=== PATIENT | female | born 1945 | race Hispanic/Latino ===

== ENCOUNTER 2017-08-24 15:20 | Inpatient (IN) | payer OTHER ==
[~2017-08-24] VITALS: Ht 157.5 cm; Wt 66.2 kg
[2017-08-24 15:55] LABS: BASOPHILS % (AUTO) 0.4 % (0.0-5.0); EOSINOPHILS % (AUTO) 0.7 % (0.0-8.0); HEMATOCRIT 35.9 % (36-48); LYMPHOCYTES % (AUTO) 18.1 % (21.0-51.0); MEAN CORPUSCULAR HEMOGLOBIN 30.1 pg (27.0-33.0); MEAN CORPUSCULAR HGB CONC 34.7 g/dL (32.0-36.0); MEAN CORPUSCULAR VOLUME 86.9 fL (79-99); MONOCYTES % (AUTO) 6.3 % (3.0-13.0); NEUTROPHILS % (AUTO) 74.5 % (40.0-77.0); PLATELET COUNT (AUTO) 311 K/uL (130-400); RED BLOOD CELL COUNT(AUTO) 4.13 MIL/uL (4.00-5.50); RED CELL DISTRIBUTION WIDTH 13.6 % (11.0-15.5); WHITE BLOOD COUNT (AUTO) 13.7 K/uL (4.8-10.8)
[2017-08-24 16:10] LABS: ALBUMIN 3.5 g/dL (3.5-5.0); BILIRUBIN,TOTAL 0.3 mg/dL (0.2-1.0); CREATININE 0.8 mg/dL (0.5-1.5); TOTAL PROTEIN, SERUM 8.3 g/dL (6.0-8.3)
[2017-08-24 16:12] LABS: POTASSIUM 2.8 mmol/L (3.5-5.1)
[2017-08-24] MEDS ORDERED: IOPAMIDOL-370 100 ML VIAL IV ONE (16:57)
[2017-08-24] MEDS ORDERED: FAMOTIDINE 20MG TAB 20 MG TAB ONE (17:54)
[2017-08-24] MEDS ORDERED: ENOXAPARIN SODIUM 40 MG/0.4 ML SYRINGE SQ ONE (17:55)
[2017-08-24] MEDS ORDERED: ZOSYN 3.375GM+NS 50ML 50 ML IV ONE (17:55)
[2017-08-24] MEDS ORDERED: AZITHROMYCIN 500MG+NS 250ML 250 ML IV ONE (17:55)
[2017-08-24] MEDS ORDERED: KETOROLAC TROMETHAMINE 15MG/ML ONE (17:56)
[2017-08-24] MEDS ORDERED: POTASSIUM CHLORIDE 20 MEQ ERTAB PO ONE ×2 (17:56→20:12)
[2017-08-24 21:15] VITALS: BP 143/108
[2017-08-24] MEDS ORDERED: SODIUM CHLORIDE 0.9% 10 ML VIAL IVP PRN (21:45)
[2017-08-24 23:00] VITALS: BP 192/84
[2017-08-24] MEDS ORDERED: POTASSIUM CHLORIDE 10% ELIXIR 20 MEQ/15 ML UDCUP ONE (23:17)
[2017-08-25] MEDS ORDERED: POTASSIUM CHLORIDE 20MEQ/100ML 100 ML IV PRN
[2017-08-25] MEDS ORDERED: POTASSIUM CHLORIDE 20 MEQ ERTAB PO PRN
[2017-08-25] MEDS ORDERED: LIDOCAINE HCL-MPF 1% 2ML VIAL IVP PRN
[2017-08-25] MEDS ORDERED: ASPI-1005 PO (01:51)
[2017-08-25] MEDS ORDERED: LISI10TA7 PO (01:51)
[2017-08-25] MEDS ORDERED: FOLI1TAB PO (01:51)
[2017-08-25] MEDS ORDERED: FLUT16H NASAL (01:51)
[2017-08-25 03:00] VITALS: BP 152/76
[2017-08-25 04:39] LABS: MAGNESIUM 1.9 mg/dL (1.80-2.40); POTASSIUM 3.5 mmol/L (3.5-5.1)
[2017-08-25 04:42] LABS: INR 0.97 (0.85-1.15); PROTHROMBIN TIME 10.2 SEC (9.6-11.6)
[2017-08-25] MEDS: ZOSYN 3.375GM+NS 50ML 50 ML IV SCH ×3 (06:09→21:12)
[2017-08-25] MEDS ORDERED: KETOROLAC TROMETHAMINE 30MG/ML IV SCH (06:30)
[2017-08-25 08:00] VITALS: BP 138/81
[2017-08-25] MEDS ORDERED: LIDOCAINE 1%-EPI 1:100,000 20 ML VIAL IJ SCH (08:45)
[2017-08-25] MEDS ORDERED: SODIUM BICARB 50MEQ 50ML VIAL IV SCH (08:45)
[2017-08-25] MEDS ORDERED: LIDOCAINE HCL 1% 20 ML VIAL INJ SCH (08:45)
[2017-08-25] MEDS ORDERED: LIDOCAINE 1%-EPI 1:100,000 20 ML VIAL IJ ONE (08:51)
[2017-08-25] MEDS ORDERED: LIDOCAINE HCL 1% 20 ML VIAL ONE (08:51)
[2017-08-25] MEDS ORDERED: SODIUM BICARB 50MEQ 50ML VIAL ONE (08:53)
[2017-08-25] MEDS: ENOXAPARIN SODIUM 40 MG/0.4 ML SYRINGE SQ SCH (09:00)
[2017-08-25] MEDS: FLUTICASONE PROPIONATE 50MCG/SPRAY 16 GM BOTTLE NS SCH (09:00)
[2017-08-25] MEDS: ASPIRIN 81MG TAB.CHEW PO SCH (09:00)
[2017-08-25 11:00] VITALS: BP 142/74
[2017-08-25] MEDS: MULTIVITAMIN WITH MINERALS TABLET PO SCH (11:01)
[2017-08-25] MEDS: LISINOPRIL 10 MG TABLET PO SCH (11:01)
[2017-08-25 16:00] VITALS: BP 152/74
[2017-08-25] MEDS ORDERED: ACETAMINOPHEN-CODEINE 300/30MG TAB PO PRN (16:45)
[2017-08-25] MEDS: AZITHROMYCIN 500MG+NS 250ML 250 ML IV SCH (18:30)
[2017-08-25] MEDS: POTASSIUM CHLORIDE 10% ELIXIR 20 MEQ/15 ML UDCUP PO PRN ×2 (18:32→21:57)
[2017-08-25 19:47] VITALS: BP 152/80
[2017-08-25 23:41] VITALS: BP 180/88
[2017-08-26] VITALS (7 sets, daily range): BP systolic 140–168; BP diastolic 63–80
[2017-08-26] MEDS ORDERED: ONDANSETRON HCL MDV 20ML 2 MG/ML VIAL ONE (00:12)
[2017-08-26] MEDS ORDERED: AMLODIPINE BESYLATE 2.5 MG TAB PO ONE (00:14)
[2017-08-26] MEDS ORDERED: ONDANSETRON HCL MDV 20ML 2 MG/ML VIAL IVP PRN (00:15)
[2017-08-26] MEDS ORDERED: AMLODIPINE BESYLATE 2.5 MG TAB PO PRN (00:15)
[2017-08-26 03:46] LABS: BASOPHILS % (AUTO) 0.4 % (0.0-5.0); EOSINOPHILS % (AUTO) 0.9 % (0.0-8.0); HEMATOCRIT 31.6 % (36-48); LYMPHOCYTES % (AUTO) 15.5 % (21.0-51.0); MEAN CORPUSCULAR HEMOGLOBIN 30.8 pg (27.0-33.0); MEAN CORPUSCULAR VOLUME 88.1 fL (79-99); MONOCYTES % (AUTO) 6.3 % (3.0-13.0); NEUTROPHILS % (AUTO) 76.9 % (40.0-77.0); PLATELET COUNT (AUTO) 272 K/uL (130-400); RED BLOOD CELL COUNT(AUTO) 3.59 MIL/uL (4.00-5.50); RED CELL DISTRIBUTION WIDTH 14.1 % (11.0-15.5); WHITE BLOOD COUNT (AUTO) 11.4 K/uL (4.8-10.8)
[2017-08-26 04:05] LABS: ALBUMIN 2.8 g/dL (3.5-5.0); BILIRUBIN,TOTAL 0.4 mg/dL (0.2-1.0); CREATININE 0.7 mg/dL (0.5-1.5); POTASSIUM 3.8 mmol/L (3.5-5.1)
[2017-08-26] MEDS: ZOSYN 3.375GM+NS 50ML 50 ML IV SCH ×3 (04:59→21:42)
[2017-08-26] MEDS ORDERED: FAMOTIDINE 20MG TAB 20 MG TAB PO SCH (09:00)
[2017-08-26] MEDS: FLUTICASONE PROPIONATE 50MCG/SPRAY 16 GM BOTTLE NS SCH (09:00)
[2017-08-26] MEDS: LISINOPRIL 10 MG TABLET PO SCH (09:02)
[2017-08-26] MEDS: ASPIRIN 81MG TAB.CHEW PO SCH (09:02)
[2017-08-26] MEDS: MULTIVITAMIN WITH MINERALS TABLET PO SCH (09:03)
[2017-08-26] MEDS: ENOXAPARIN SODIUM 40 MG/0.4 ML SYRINGE SQ SCH (09:11)
[2017-08-26] MEDS: NAPROXEN 250 MG TAB PO SCH (18:17)
[2017-08-26] MEDS: AZITHROMYCIN 500MG+NS 250ML 250 ML IV SCH (18:18)
[2017-08-27 03:05] VITALS: BP 158/66
[2017-08-27] MEDS: ZOSYN 3.375GM+NS 50ML 50 ML IV SCH ×3 (05:28→20:47)
[2017-08-27 08:00] VITALS: BP 150/81
[2017-08-27] MEDS: FLUTICASONE PROPIONATE 50MCG/SPRAY 16 GM BOTTLE NS SCH (09:00)
[2017-08-27] MEDS: MULTIVITAMIN WITH MINERALS TABLET PO SCH (09:48)
[2017-08-27] MEDS: LISINOPRIL 10 MG TABLET PO SCH (09:49)
[2017-08-27] MEDS: ASPIRIN 81MG TAB.CHEW PO SCH (09:49)
[2017-08-27] MEDS: ENOXAPARIN SODIUM 40 MG/0.4 ML SYRINGE SQ SCH (09:49)
[2017-08-27] MEDS: NAPROXEN 250 MG TAB PO SCH ×2 (09:51→18:48)
[2017-08-27 12:00] VITALS: BP 155/72
[2017-08-27 15:46] VITALS: BP 160/85
[2017-08-27] MEDS: IPRATROPIUM/ALBUTEROL SULFATE 3 ML SOLUTION IH SCH ×2 (17:42→21:52)
[2017-08-27] MEDS: AZITHROMYCIN 500MG+NS 250ML 250 ML IV SCH (18:48)
[2017-08-27 19:10] VITALS: BP 135/73
[2017-08-27 23:03] VITALS: BP 144/63
[2017-08-28] MEDS: IPRATROPIUM/ALBUTEROL SULFATE 3 ML SOLUTION IH SCH ×2 (02:02→06:12)
[2017-08-28 03:05] VITALS: BP 150/76
[2017-08-28] MEDS: ZOSYN 3.375GM+NS 50ML 50 ML IV SCH ×2 (05:20→12:36)
[2017-08-28 06:17] LABS: BASOPHILS % (AUTO) 0.9 % (0.0-5.0); EOSINOPHILS % (AUTO) 1.3 % (0.0-8.0); HEMATOCRIT 31.5 % (36-48); LYMPHOCYTES % (AUTO) 23.6 % (21.0-51.0); MEAN CORPUSCULAR HEMOGLOBIN 30.9 pg (27.0-33.0); MEAN CORPUSCULAR HGB CONC 34.8 g/dL (32.0-36.0); MEAN CORPUSCULAR VOLUME 88.9 fL (79-99); MONOCYTES % (AUTO) 5.7 % (3.0-13.0); NEUTROPHILS % (AUTO) 68.5 % (40.0-77.0); PLATELET COUNT (AUTO) 303 K/uL (130-400); RED BLOOD CELL COUNT(AUTO) 3.54 MIL/uL (4.00-5.50); RED CELL DISTRIBUTION WIDTH 14.3 % (11.0-15.5); WHITE BLOOD COUNT (AUTO) 7.6 K/uL (4.8-10.8)
[2017-08-28 07:47] VITALS: BP 157/71
[2017-08-28] MEDS: FLUTICASONE PROPIONATE 50MCG/SPRAY 16 GM BOTTLE NS SCH (10:42)
[2017-08-28] MEDS: NAPROXEN 250 MG TAB PO SCH (10:53)
[2017-08-28] MEDS: LISINOPRIL 10 MG TABLET PO SCH (10:56)
[2017-08-28] MEDS: ASPIRIN 81MG TAB.CHEW PO SCH (10:56)
[2017-08-28] MEDS: MULTIVITAMIN WITH MINERALS TABLET PO SCH (10:56)
[2017-08-28] MEDS: ENOXAPARIN SODIUM 40 MG/0.4 ML SYRINGE SQ SCH (11:01)
[2017-08-28 11:52] VITALS: BP 141/69
[2017-08-28] MEDS ORDERED: AZIT500T4 PO (13:16)
[2017-08-28] MEDS ORDERED: AMOX1TAB16 PO (13:16)
[2017-08-28] MEDS ORDERED: ALBU8.5H8 IH (13:16)
[2017-09-12] MEDS ORDERED: ASPI-1181 PO (10:17)
== END 2017-08-28 16:27 | disposition home or self-care (01) | DRG 600 ==
LOC: EDH 15:20 → EDHIP 15:21 → 3AH 20:08
PROVIDERS: ADMIT Family Medicine; ATTEND Family Medicine
PROC: 0HBT3ZX Excision of Right Breast, Percutaneous Approach, Diagnostic (ICD-10-PCS; principal; 2017-08-27)
DX: N63.10 Unspecified lump in the right breast, unspecified quadrant (principal); J18.9 Pneumonia, unspecified organism; E87.6 Hypokalemia; I10 Essential (primary) hypertension; M19.90 Unspecified osteoarthritis, unspecified site; R32 Unspecified urinary incontinence; M51.36 Other intervertebral disc degeneration, lumbar region; M75.52 Bursitis of left shoulder; M47.816 Spondylosis without myelopathy or radiculopathy, lumbar region; J30.9 Allergic rhinitis, unspecified; Z88.8 Allergy status to other drugs, medicaments and biological substances; Z91.041 Radiographic dye allergy status; Z90.710 Acquired absence of both cervix and uterus; Z83.3 Family history of diabetes mellitus; Z82.49 Family history of ischemic heart disease and other diseases of the circulatory system; Z80.9 Family history of malignant neoplasm, unspecified
CPT/HCPCS: 19083; 36415; 71046; 71275; 76641; 76942; 80053; 83735; 84132; 85025; 85610; 85730; 88305; 93005; 94640; 94664; J0456; J1650; J1885; J2543; J3490; Q9967

== ENCOUNTER 2017-09-13 08:03 | Inpatient (IN) | payer OTHER ==
[~2017-09-13] VITALS: Ht 154.9 cm; Wt 65.6 kg
[~2017-09-13 08:03] MED LIST: ASPI-1181 PO; FLUT16H NASAL; FOLI1TAB PO; LISI10TA7 PO
[2017-09-13 08:43] LABS: BASOPHILS % (AUTO) 0.2 % (0.0-5.0); HEMATOCRIT 35.9 % (36-48); LYMPHOCYTES % (AUTO) 1.9 % (21.0-51.0); MEAN CORPUSCULAR HEMOGLOBIN 29.8 pg (27.0-33.0); MEAN CORPUSCULAR HGB CONC 34.2 g/dL (32.0-36.0); MONOCYTES % (AUTO) 4.2 % (3.0-13.0); NEUTROPHILS % (AUTO) 93.7 % (40.0-77.0); PLATELET COUNT (AUTO) 294 K/uL (130-400); RED BLOOD CELL COUNT(AUTO) 4.12 MIL/uL (4.00-5.50); RED CELL DISTRIBUTION WIDTH 13.9 % (11.0-15.5); WHITE BLOOD COUNT (AUTO) 26.8 K/uL (4.8-10.8)
[2017-09-13] MEDS ORDERED: ONDANSETRON HCL MDV 20ML 2 MG/ML VIAL ONE (09:03)
[2017-09-13 09:04] LABS: ALANINE AMINOTRANSFERASE 59 U/L (12-78); ALBUMIN 3.1 g/dL (3.5-5.0); ASPARTATE AMINOTRANSFERASE 34 U/L (10-37); BILIRUBIN,TOTAL 0.5 mg/dL (0.2-1.0); CARBON DIOXIDE 27 mmol/L (21-32); CHLORIDE 102 mmol/L (101-111); CREATINE KINASE MB < 0.5 ng/mL (0.5-3.6); CREATINE KINASE, TOTAL 58 U/L (21-232); CREATININE 0.8 mg/dL (0.5-1.5); GLOMERULAR FILTR. RATE CALC 75 mL/min (>60); GLUCOSE,RANDOM 148 mg/dL (70-105); MYOGLOBIN 84 ng/mL (10-92); SODIUM SERUM 139 mmol/L (136-145); TOTAL PROTEIN, SERUM 7.9 g/dL (6.0-8.3); TROPONIN I 0.13 ng/mL (0.00-0.06); UREA NITROGEN, BLOOD 12 mg/dL (7-18)
[2017-09-13] MEDS ORDERED: SODIUM CHLORIDE 0.9% 1000ML 2,000 ML IV ONE ×2 (09:04→11:42)
[2017-09-13] MEDS ORDERED: LEVOFLOXACIN 750 MG/D5W 150 ML 150 ML ONE (09:04)
[2017-09-13] MEDS ORDERED: ACETAMINOPHEN 325 MG TAB ONE (09:04)
[2017-09-13 09:07] LABS: POTASSIUM 2.9 mmol/L (3.5-5.1)
[2017-09-13 09:09] LABS: BILIRUBIN,URINE Negative (NEGATIVE); COLOR,URINE Dark Yellow (YELLOW); GLUCOSE, URINE (UA) Negative (NEGATIVE); KETONES,URINE 40 mg/dL (NEGATIVE); LEUKOCYTE ESTERASE ,URINE Negative (NEGATIVE); NITRATE,URINE Negative (NEGATIVE); OCCULT BLOOD,URINE Moderate (NEGATIVE); PROTEIN,URINE POS 1+ (NEGATIVE)
[2017-09-13 09:13] LABS: APPEARANCE,URINE CLEAR (CLEAR)
[2017-09-13 09:17] LABS: INR 0.99 (0.85-1.15); PARTIAL THROMBOPLASTIN TIME 28.3 SEC (26.3-35.5); PROTHROMBIN TIME 10.4 SEC (9.6-11.6)
[2017-09-13 09:19] LABS: BACTERIA,URINE Rare /HPF (None Seen); SQUAMOUS EPITHELIAL CELL,UR Few /HPF (0-2); WBC,URINE 0-1 /HPF (0-1)
[2017-09-13] MEDS ORDERED: POTASSIUM BICARB/CIT AC 25 MEQ TABLET.EFF ONE (09:38)
[2017-09-13] MEDS ORDERED: ZOSYN 3.375GM+NS 50ML 50 ML IV SCH (11:00)
[2017-09-13] MEDS ORDERED: COMPOUND IV REFRIGERATED 1 EACH IVSOLN MISC PRN (11:00)
[2017-09-13] MEDS ORDERED: VANCOMYCIN 1.5 GM in SODIUM CHLORIDE 0.9% 250 ML IV SCH (11:00)
[2017-09-13] MEDS ORDERED: VANCOMYCIN PROTOCOL PER PHARMACY IV SCH ×2 (11:00→11:15)
[2017-09-13] MEDS ORDERED: POTASSIUM CHLORIDE 10% ELIXIR 20 MEQ/15 ML UDCUP PO PRN (11:00)
[2017-09-13] MEDS: IPRATROPIUM/ALBUTEROL SULFATE 3 ML SOLUTION IH SCH ×3 (11:37→23:03)
[2017-09-13] MEDS ORDERED: ISOVUE-370 50ML VIAL IV ONE (12:44)
[2017-09-13] MEDS ORDERED: SODIUM CHLORIDE 0.9% 1000ML 1,000 ML IV ONE (13:09)
[2017-09-13] MEDS ORDERED: ZOSYN 3.375GM+NS 50ML 50 ML IV ONE (13:09)
[2017-09-13 13:35] LABS: OCCULT BLOOD STOOL SINGLE ONLY POSITIVE (NEGATIVE)
[2017-09-13] MEDS ORDERED: METRONIDAZOLE 500 MG TABLET ONE (14:38)
[2017-09-13 15:27] VITALS: BP 152/76
[2017-09-13] MEDS: ONDANSETRON HCL MDV 20ML 2 MG/ML VIAL IVP SCH (15:37)
[2017-09-13] MEDS ORDERED: PHARMACY COMMUNICATION MISC SCH ×2 (15:45→18:30)
[2017-09-13] MEDS ORDERED: SERT25TA5 PO (15:46)
[2017-09-13] MEDS: SODIUM CHLORIDE 0.9% 1000ML 1,000 ML IV SCH (17:56)
[2017-09-13 19:25] VITALS: BP 135/61
[2017-09-13] MEDS: METRONIDAZOLE 500 MG TABLET PO SCH (20:14)
[2017-09-13 23:48] VITALS: BP 128/63
[2017-09-14 03:33] VITALS: BP 120/48
[2017-09-14 03:56] LABS: HEMATOCRIT 32.8 % (36-48); MEAN CORPUSCULAR HEMOGLOBIN 30.2 pg (27.0-33.0); MEAN CORPUSCULAR HGB CONC 34.4 g/dL (32.0-36.0); MEAN CORPUSCULAR VOLUME 87.8 fL (79-99); PLATELET COUNT (AUTO) 245 K/uL (130-400); RED BLOOD CELL COUNT(AUTO) 3.74 MIL/uL (4.00-5.50); RED CELL DISTRIBUTION WIDTH 14.3 % (11.0-15.5); WHITE BLOOD COUNT (AUTO) 15.7 K/uL (4.8-10.8)
[2017-09-14 04:06] LABS: ALBUMIN 2.3 g/dL (3.5-5.0); BILIRUBIN,TOTAL 0.2 mg/dL (0.2-1.0); CREATININE 0.8 mg/dL (0.5-1.5); POTASSIUM 3.2 mmol/L (3.5-5.1); TOTAL PROTEIN, SERUM 6.4 g/dL (6.0-8.3)
[2017-09-14 04:07] LABS: BAND NEUTROPHILS % (MANUAL) 16 % (0-2); LYMPHOCYTES % (MANUAL) 8 % (22-44); MAN.DIFF COMMENT-IMPRESSION MANUAL DIFFERENTIAL; MONOCYTES % (MANUAL) 5 % (2-9); PLATELET MORPHOLOGY COMMENT ADEQUATE; SEGMENTED NEUTROPHILS % 71 % (40-70)
[2017-09-14] MEDS: IPRATROPIUM/ALBUTEROL SULFATE 3 ML SOLUTION IH SCH ×4 (06:20→23:17)
[2017-09-14] MEDS: BENZONATATE 100 MG CAPSULE PO PRN (06:48)
[2017-09-14] MEDS: POTASSIUM CHLORIDE 20 MEQ ERTAB PO PRN (06:49)
[2017-09-14 07:00] VITALS: BP 139/69
[2017-09-14] MEDS: METRONIDAZOLE 500 MG TABLET PO SCH ×3 (08:07→20:30)
[2017-09-14] MEDS: VANCOMYCIN 1GM+NS 250ML 250 ML IV SCH (08:08)
[2017-09-14] MEDS: SODIUM CHLORIDE 0.9% 1000ML 1,000 ML IV SCH ×2 (08:13→17:00)
[2017-09-14] MEDS ORDERED: CALCIUM GLUCONATE 1 GM in SODIUM CHLORIDE 0.9% 50 ML IV SCH (09:00)
[2017-09-14 11:00] VITALS: BP 134/62
[2017-09-14] MEDS: ACETAMINOPHEN 325 MG TAB PO PRN (15:00)
[2017-09-14 16:00] VITALS: BP 148/61
[2017-09-14 19:15] VITALS: BP 128/56
[2017-09-14 23:10] VITALS: BP 156/71
[2017-09-15 03:30] VITALS: BP 154/71
[2017-09-15] MEDS: SODIUM CHLORIDE 0.9% 1000ML 1,000 ML IV SCH ×3 (04:54→22:07)
[2017-09-15 04:56] LABS: HEMATOCRIT 30.3 % (36-48); MEAN CORPUSCULAR HEMOGLOBIN 30.8 pg (27.0-33.0); MEAN CORPUSCULAR HGB CONC 35.2 g/dL (32.0-36.0); MEAN CORPUSCULAR VOLUME 87.5 fL (79-99); PLATELET COUNT (AUTO) 238 K/uL (130-400); RED BLOOD CELL COUNT(AUTO) 3.46 MIL/uL (4.00-5.50); RED CELL DISTRIBUTION WIDTH 14.3 % (11.0-15.5); WHITE BLOOD COUNT (AUTO) 10.4 K/uL (4.8-10.8)
[2017-09-15 05:18] LABS: ALBUMIN 2.2 g/dL (3.5-5.0); BILIRUBIN,TOTAL 0.2 mg/dL (0.2-1.0); CREATININE 0.7 mg/dL (0.5-1.5); TOTAL PROTEIN, SERUM 6.1 g/dL (6.0-8.3)
[2017-09-15 05:33] LABS: BAND NEUTROPHILS % (MANUAL) 15 % (0-2); BASOPHILS % (MANUAL) 1 % (0-2); EOSINOPHILS % (MANUAL) 3 % (1-6); LYMPHOCYTES % (MANUAL) 12 % (22-44); MAN.DIFF COMMENT-IMPRESSION MANUAL DIFFERENTIAL; MONOCYTES % (MANUAL) 5 % (2-9); PLATELET MORPHOLOGY COMMENT ADEQUATE; SEGMENTED NEUTROPHILS % 64 % (40-70)
[2017-09-15] MEDS ORDERED: POTA20TA12 PO (05:34)
[2017-09-15] MEDS ORDERED: METR500T PO (05:34)
[2017-09-15] MEDS ORDERED: BENZ-51 PO (05:34)
[2017-09-15] MEDS: IPRATROPIUM/ALBUTEROL SULFATE 3 ML SOLUTION IH SCH ×3 (07:06→18:41)
[2017-09-15] MEDS: ONDANSETRON HCL MDV 20ML 2 MG/ML VIAL IVP SCH (07:07)
[2017-09-15 08:00] VITALS: BP 161/100
[2017-09-15] MEDS: BENZONATATE 100 MG CAPSULE PO PRN (08:21)
[2017-09-15] MEDS: METRONIDAZOLE 500 MG TABLET PO SCH ×3 (08:21→21:54)
[2017-09-15] MEDS: VANCOMYCIN 1GM+NS 250ML 250 ML IV SCH (08:22)
[2017-09-15] MEDS: LIDOCAINE HCL-MPF 1% 2ML VIAL IJ PRN ×2 (11:30→21:55)
[2017-09-15] MEDS: POTASSIUM CHLORIDE 20MEQ/100ML 100 ML IV PRN ×2 (11:30→21:55)
[2017-09-15 12:00] VITALS: BP 170/73
[2017-09-15] MEDS ORDERED: LOPERAMIDE HCL 2 MG CAP PO PRN (13:30)
[2017-09-15] MEDS: POTASSIUM CHLORIDE 20 MEQ ERTAB PO PRN ×3 (13:43→17:33)
[2017-09-15 16:00] VITALS: BP 143/80
[2017-09-15 19:30] VITALS: BP 138/68
[2017-09-15 23:15] VITALS: BP 146/81
[2017-09-16] MEDS: IPRATROPIUM/ALBUTEROL SULFATE 3 ML SOLUTION IH SCH ×2 (00:47→06:57)
[2017-09-16 03:20] VITALS: BP 145/79
[2017-09-16 05:37] LABS: HEMATOCRIT 33.3 % (36-48); MEAN CORPUSCULAR HGB CONC 35.2 g/dL (32.0-36.0); MEAN CORPUSCULAR VOLUME 88.1 fL (79-99); PLATELET COUNT (AUTO) 307 K/uL (130-400); RED BLOOD CELL COUNT(AUTO) 3.78 MIL/uL (4.00-5.50); RED CELL DISTRIBUTION WIDTH 14.8 % (11.0-15.5); WHITE BLOOD COUNT (AUTO) 9.8 K/uL (4.8-10.8)
[2017-09-16 05:52] LABS: ALBUMIN 2.6 g/dL (3.5-5.0); BILIRUBIN,TOTAL 0.1 mg/dL (0.2-1.0); CREATININE 0.7 mg/dL (0.5-1.5); POTASSIUM 3.5 mmol/L (3.5-5.1); TOTAL PROTEIN, SERUM 6.8 g/dL (6.0-8.3)
[2017-09-16 06:09] LABS: BAND NEUTROPHILS % (MANUAL) 4 % (0-2); BASOPHILS % (MANUAL) 2 % (0-2); LYMPHOCYTES % (MANUAL) 26 % (22-44); MONOCYTES % (MANUAL) 6 % (2-9); SEGMENTED NEUTROPHILS % 62 % (40-70)
[2017-09-16 06:10] LABS: MAN.DIFF COMMENT-IMPRESSION MANUAL DIFFERENTIAL; PLATELET MORPHOLOGY COMMENT ADEQUATE
[2017-09-16] MEDS ORDERED: FLUTICASONE PROPIONATE 50MCG/SPRAY 16 GM BOTTLE EN PRN (07:30)
[2017-09-16 08:00] VITALS: BP 162/71
[2017-09-16] MEDS: METRONIDAZOLE 500 MG TABLET PO SCH ×2 (08:03→13:17)
[2017-09-16] MEDS: BENZONATATE 100 MG CAPSULE PO PRN (08:04)
[2017-09-16] MEDS: ACETAMINOPHEN 325 MG TAB PO PRN ×2 (08:10→13:20)
[2017-09-16] MEDS ORDERED: SERTRALINE HCL 50 MG TABLET PO SCH (09:00)
[2017-09-16] MEDS ORDERED: LISINOPRIL 10 MG TABLET PO SCH (09:00)
[2017-09-16] MEDS ORDERED: ASPIRIN 81 MG EC TAB PO SCH (09:00)
[2017-09-16] MEDS ORDERED: MULTIVITAMIN WITH MINERALS TABLET PO SCH (09:00)
[2017-09-16] MEDS: POTASSIUM CHLORIDE 20 MEQ ERTAB PO PRN (13:18)
== END 2017-09-16 15:50 | disposition home or self-care (01) | DRG 372 ==
LOC: EDH 08:03 → EDHIP 10:15 → 2AH 15:19 → 3AH 09-14 11:38
PROVIDERS: ADMIT Family Medicine; ATTEND Family Medicine
DX: A04.72 Enterocolitis due to Clostridium difficile, not specified as recurrent (principal); C78.00 Secondary malignant neoplasm of unspecified lung; C50.911 Malignant neoplasm of unspecified site of right female breast; E83.51 Hypocalcemia; E86.0 Dehydration; I10 Essential (primary) hypertension; E87.6 Hypokalemia; Z85.3 Personal history of malignant neoplasm of breast; Z87.01 Personal history of pneumonia (recurrent); Z90.710 Acquired absence of both cervix and uterus; Z88.8 Allergy status to other drugs, medicaments and biological substances; Z90.49 Acquired absence of other specified parts of digestive tract; Z88.5 Allergy status to narcotic agent
CPT/HCPCS: 36415; 71045; 71260; 80053; 81001; 82270; 82550; 82553; 83605; 83735; 83874; 84132; 84484; 85025; 85610; 85730; 87040; 87046; 87088; 87177; 87205; 87324; 87804; 93005; 94640; 94664; J0610; J1956; J2543; J3370; J3480; J3490; J7030; Q9967

== ENCOUNTER 2017-09-23 11:57 | Inpatient (IN) | payer OTHER ==
[~2017-09-23] VITALS: Ht 154.9 cm; Wt 64.9 kg
[~2017-09-23 11:57] MED LIST changes: +BENZ-51 PO; +METR500T PO; +POTA20TA12 PO; +SERT25TA5 PO
[2017-09-23] MEDS ORDERED: SODIUM CHLORIDE 0.9% 1000ML 1,000 ML IV ONE (12:26)
[2017-09-23 12:31] LABS: BASOPHILS % (AUTO) 0.3 % (0.0-5.0); EOSINOPHILS % (AUTO) 0.1 % (0.0-8.0); HEMATOCRIT 37.3 % (36-48); MEAN CORPUSCULAR HEMOGLOBIN 29.8 pg (27.0-33.0); MEAN CORPUSCULAR HGB CONC 34.2 g/dL (32.0-36.0); MEAN CORPUSCULAR VOLUME 87.3 fL (79-99); MONOCYTES % (AUTO) 4.7 % (3.0-13.0); NEUTROPHILS % (AUTO) 85.9 % (40.0-77.0); PLATELET COUNT (AUTO) 417 K/uL (130-400); RED BLOOD CELL COUNT(AUTO) 4.27 MIL/uL (4.00-5.50); RED CELL DISTRIBUTION WIDTH 15.1 % (11.0-15.5); WHITE BLOOD COUNT (AUTO) 15.6 K/uL (4.8-10.8)
[2017-09-23 12:49] LABS: INR 0.98 (0.85-1.15); PARTIAL THROMBOPLASTIN TIME 27.5 SEC (26.3-35.5); PROTHROMBIN TIME 10.3 SEC (9.6-11.6)
[2017-09-23 13:02] LABS: B-TYPE NATRIURETIC PEPTIDE 26 pg/mL (0-100)
[2017-09-23] MEDS ORDERED: LEVOFLOXACIN 750 MG/D5W 150 ML 150 ML ONE (13:16)
[2017-09-23] MEDS ORDERED: ZOSYN 3.375GM+NS 50ML 50 ML IV ONE (13:16)
[2017-09-23 14:15] LABS: CREATININE 0.7 mg/dL (0.5-1.5); POTASSIUM 3.2 mmol/L (3.5-5.1)
[2017-09-23 14:45] LABS: ALBUMIN 2.8 g/dL (3.5-5.0); BILIRUBIN,TOTAL 0.3 mg/dL (0.2-1.0); CREATINE KINASE MB 1.6 ng/mL (0.5-3.6); TOTAL PROTEIN, SERUM 7.8 g/dL (6.0-8.3); TROPONIN I 0.19 ng/mL (0.00-0.06)
[2017-09-23 15:59] LABS: APPEARANCE,URINE Clear (CLEAR); BILIRUBIN,URINE Negative (NEGATIVE); COLOR,URINE Yellow (YELLOW); GLUCOSE, URINE (UA) Negative (NEGATIVE); KETONES,URINE Negative (NEGATIVE); LEUKOCYTE ESTERASE ,URINE Negative (NEGATIVE); NITRATE,URINE Negative (NEGATIVE); OCCULT BLOOD,URINE Negative (NEGATIVE); PROTEIN,URINE Negative (NEGATIVE); UROBILINOGEN,URINE 0.2 mg/dL (0.2-1.0)
[2017-09-23 16:32] VITALS: BP 168/84
[2017-09-23] MEDS: AZITHROMYCIN 500MG+NS 250ML 250 ML IV SCH (17:08)
[2017-09-23] MEDS: ENOXAPARIN SODIUM 40 MG/0.4 ML SYRINGE SQ SCH (17:09)
[2017-09-23] MEDS: CEFTRIAXONE SODIUM 1 GM IVP SCH (17:09)
[2017-09-23] MEDS: AMLODIPINE BESYLATE 5 MG TAB PO SCH (17:09)
[2017-09-23] MEDS: NS-20 MEQ KCL 1000ML 1,000 ML IV SCH (17:27)
[2017-09-23 19:10] VITALS: BP 147/87
[2017-09-23] MEDS ORDERED: PRO AIR (20:19)
[2017-09-24] VITALS (8 sets, daily range): BP systolic 129–168; BP diastolic 61–91
[2017-09-24] MEDS: NS-20 MEQ KCL 1000ML 1,000 ML IV SCH ×2 (05:50→20:00)
[2017-09-24 06:53] LABS: MEAN CORPUSCULAR HEMOGLOBIN 29.6 pg (27.0-33.0); MEAN CORPUSCULAR HGB CONC 33.5 g/dL (32.0-36.0); MEAN CORPUSCULAR VOLUME 88.4 fL (79-99); PLATELET COUNT (AUTO) 376 K/uL (130-400); RED BLOOD CELL COUNT(AUTO) 3.96 MIL/uL (4.00-5.50); RED CELL DISTRIBUTION WIDTH 15.4 % (11.0-15.5); WHITE BLOOD COUNT (AUTO) 13.6 K/uL (4.8-10.8)
[2017-09-24 07:13] LABS: CREATININE 0.6 mg/dL (0.5-1.5); POTASSIUM 3.4 mmol/L (3.5-5.1)
[2017-09-24] MEDS: AMLODIPINE BESYLATE 5 MG TAB PO SCH (09:27)
[2017-09-24] MEDS: ENOXAPARIN SODIUM 40 MG/0.4 ML SYRINGE SQ SCH (09:28)
[2017-09-24] MEDS: IPRATROPIUM/ALBUTEROL SULFATE 3 ML SOLUTION IH SCH ×4 (09:45→23:51)
[2017-09-24] MEDS ORDERED: IPRATROPIUM/ALBUTEROL SULFATE 3 ML SOLUTION IH ONE (09:54)
[2017-09-24] MEDS ORDERED: LORAZEPAM 1 MG TABLET PO PRN (10:15)
[2017-09-24] MEDS: LORAZEPAM 1 MG TABLET PO SCH ×2 (11:15→20:00)
[2017-09-24] MEDS ORDERED: ISOVUE-370 50ML VIAL IV ONE (15:45)
[2017-09-24] MEDS: CEFTRIAXONE SODIUM 1 GM IVP SCH (17:13)
[2017-09-24] MEDS: AZITHROMYCIN 500MG+NS 250ML 250 ML IV SCH (17:14)
[2017-09-24] MEDS ORDERED: BUDESONIDE 0.5 MG/2 ML INH IH SCH (18:00)
[2017-09-24] MEDS ORDERED: BUDESONIDE 0.25 MG/2 ML INH IH SCH (21:00)
[2017-09-24] MEDS: BUDESONIDE 0.25 MG/2 ML INH IH SCH (22:23)
[2017-09-25] VITALS (7 sets, daily range): BP systolic 135–156; BP diastolic 56–96
[2017-09-25] MEDS: NS-20 MEQ KCL 1000ML 1,000 ML IV SCH ×2 (04:58→21:35)
[2017-09-25] MEDS ORDERED: BUDESONIDE 0.25 MG/2 ML INH IH SCH (06:00)
[2017-09-25] MEDS: IPRATROPIUM/ALBUTEROL SULFATE 3 ML SOLUTION IH SCH ×4 (06:56→23:47)
[2017-09-25] MEDS: BUDESONIDE 0.25 MG/2 ML INH IH SCH ×2 (07:14→18:56)
[2017-09-25 07:30] LABS: HEMATOCRIT 36.4 % (36-48); MEAN CORPUSCULAR HGB CONC 34.2 g/dL (32.0-36.0); MEAN CORPUSCULAR VOLUME 87.6 fL (79-99); NUCLEATED RED BLOOD CELLS 0.2 % (0.0-0.19); PLATELET COUNT (AUTO) 431 K/uL (130-400); RED BLOOD CELL COUNT(AUTO) 4.16 MIL/uL (4.00-5.50); RED CELL DISTRIBUTION WIDTH 15.2 % (11.0-15.5); WHITE BLOOD COUNT (AUTO) 11.9 K/uL (4.8-10.8)
[2017-09-25 07:39] LABS: CREATININE 0.7 mg/dL (0.5-1.5); POTASSIUM 3.8 mmol/L (3.5-5.1)
[2017-09-25 07:40] LABS: INR 0.93 (0.85-1.15); PROTHROMBIN TIME 9.8 SEC (9.6-11.6)
[2017-09-25 07:57] LABS: LYMPHOCYTES % (MANUAL) 12 % (22-44); MAN.DIFF COMMENT-IMPRESSION MANUAL DIFFERENTIAL; MONOCYTES % (MANUAL) 3 % (2-9); PLATELET MORPHOLOGY COMMENT ADEQUATE; SEGMENTED NEUTROPHILS % 85 % (40-70)
[2017-09-25] MEDS: AMLODIPINE BESYLATE 5 MG TAB PO SCH (08:09)
[2017-09-25] MEDS: SERTRALINE HCL 50 MG TABLET PO SCH (08:09)
[2017-09-25] MEDS: LORAZEPAM 1 MG TABLET PO SCH ×2 (08:09→21:35)
[2017-09-25] MEDS: ENOXAPARIN SODIUM 40 MG/0.4 ML SYRINGE SQ SCH (08:10)
[2017-09-25] MEDS: CEFTRIAXONE SODIUM 1 GM IVP SCH (18:32)
[2017-09-25] MEDS: AZITHROMYCIN 500MG+NS 250ML 250 ML IV SCH (18:32)
[2017-09-25] MEDS ORDERED: LORAZEPAM 0.5 MG TABLET PO PRN (21:00)
[2017-09-26] VITALS (11 sets, daily range): BP systolic 121–169; BP diastolic 73–101
[2017-09-26 04:53] LABS: BASOPHILS % (AUTO) 0.7 % (0.0-5.0); EOSINOPHILS % (AUTO) 0.6 % (0.0-8.0); HEMATOCRIT 33.8 % (36-48); LYMPHOCYTES % (AUTO) 10.8 % (21.0-51.0); MEAN CORPUSCULAR HEMOGLOBIN 30.2 pg (27.0-33.0); MEAN CORPUSCULAR HGB CONC 34.4 g/dL (32.0-36.0); MEAN CORPUSCULAR VOLUME 87.7 fL (79-99); MONOCYTES % (AUTO) 5.1 % (3.0-13.0); NEUTROPHILS % (AUTO) 82.8 % (40.0-77.0); PLATELET COUNT (AUTO) 396 K/uL (130-400); RED BLOOD CELL COUNT(AUTO) 3.85 MIL/uL (4.00-5.50); WHITE BLOOD COUNT (AUTO) 9.6 K/uL (4.8-10.8)
[2017-09-26 05:02] LABS: CREATININE 0.6 mg/dL (0.5-1.5); POTASSIUM 3.7 mmol/L (3.5-5.1)
[2017-09-26] MEDS: IPRATROPIUM/ALBUTEROL SULFATE 3 ML SOLUTION IH SCH ×4 (06:49→23:53)
[2017-09-26] MEDS: BUDESONIDE 0.25 MG/2 ML INH IH SCH ×2 (07:15→18:20)
[2017-09-26] MEDS: AMLODIPINE BESYLATE 5 MG TAB PO SCH (08:49)
[2017-09-26] MEDS: LORAZEPAM 1 MG TABLET PO SCH ×2 (08:49→21:04)
[2017-09-26] MEDS: SERTRALINE HCL 50 MG TABLET PO SCH (08:49)
[2017-09-26] MEDS: ENOXAPARIN SODIUM 40 MG/0.4 ML SYRINGE SQ SCH (09:00)
[2017-09-26] MEDS ORDERED: LIDOCAINE HCL 1% MDV 50ML VIAL ONE (10:12)
[2017-09-26] MEDS ORDERED: LIDOCAINE 1%-EPI 1:100,000 20 ML VIAL IJ ONE (10:12)
[2017-09-26] MEDS ORDERED: MIDAZOLAM HCL 1 MG/ML 2ML VIAL ONE (10:49)
[2017-09-26] MEDS ORDERED: FENTANYL CITRATE PF 50 MCG/1 ML 2ML VIAL ONE (10:49)
[2017-09-26] MEDS ORDERED: OCTYL 2-CYANOACRYLATE 1 EACH TP ONE (11:00)
[2017-09-26] MEDS: KETOROLAC TROMETHAMINE 15MG/ML IV PRN (16:36)
[2017-09-26] MEDS: NS-20 MEQ KCL 1000ML 1,000 ML IV SCH (21:09)
[2017-09-27] MEDS: KETOROLAC TROMETHAMINE 15MG/ML IV PRN ×2 (02:28→09:08)
[2017-09-27 03:58] VITALS: BP 163/83
[2017-09-27 04:34] LABS: BASOPHILS % (AUTO) 0.4 % (0.0-5.0); EOSINOPHILS % (AUTO) 0.2 % (0.0-8.0); HEMATOCRIT 31.8 % (36-48); LYMPHOCYTES % (AUTO) 7.2 % (21.0-51.0); MEAN CORPUSCULAR HEMOGLOBIN 30.6 pg (27.0-33.0); MEAN CORPUSCULAR HGB CONC 34.8 g/dL (32.0-36.0); MEAN CORPUSCULAR VOLUME 87.9 fL (79-99); MONOCYTES % (AUTO) 6.2 % (3.0-13.0); NUCLEATED RED BLOOD CELLS 0.1 % (0.0-0.19); PLATELET COUNT (AUTO) 348 K/uL (130-400); RED BLOOD CELL COUNT(AUTO) 3.62 MIL/uL (4.00-5.50); RED CELL DISTRIBUTION WIDTH 15.2 % (11.0-15.5); WHITE BLOOD COUNT (AUTO) 13.5 K/uL (4.8-10.8)
[2017-09-27] MEDS: IPRATROPIUM/ALBUTEROL SULFATE 3 ML SOLUTION IH SCH ×4 (06:54→23:07)
[2017-09-27 08:00] VITALS: BP 164/96
[2017-09-27] MEDS: SERTRALINE HCL 50 MG TABLET PO SCH (09:08)
[2017-09-27] MEDS: ENOXAPARIN SODIUM 40 MG/0.4 ML SYRINGE SQ SCH (09:09)
[2017-09-27] MEDS: AMLODIPINE BESYLATE 5 MG TAB PO SCH (09:09)
[2017-09-27] MEDS: LORAZEPAM 1 MG TABLET PO SCH ×2 (09:09→21:29)
[2017-09-27] MEDS ORDERED: FENTANYL 25 MCG/HR PATCH TD SCH (10:15)
[2017-09-27] MEDS: BUDESONIDE 0.25 MG/2 ML INH IH SCH ×2 (11:27→23:07)
[2017-09-27 11:33] VITALS: BP 145/84
[2017-09-27 16:00] VITALS: BP 163/81
[2017-09-27] MEDS: NS-20 MEQ KCL 1000ML 1,000 ML IV SCH (21:32)
[2017-09-28 00:04] VITALS: BP 148/75
[2017-09-28 01:40] VITALS: BP 165/88
[2017-09-28] MEDS: NS-20 MEQ KCL 1000ML 1,000 ML IV SCH ×3 (03:10→16:30)
[2017-09-28 04:13] LABS: BASOPHILS % (AUTO) 0.7 % (0.0-5.0); EOSINOPHILS % (AUTO) 0.3 % (0.0-8.0); HEMATOCRIT 32.5 % (36-48); LYMPHOCYTES % (AUTO) 11.1 % (21.0-51.0); MEAN CORPUSCULAR HEMOGLOBIN 29.9 pg (27.0-33.0); MEAN CORPUSCULAR HGB CONC 33.7 g/dL (32.0-36.0); MEAN CORPUSCULAR VOLUME 88.6 fL (79-99); MONOCYTES % (AUTO) 8.9 % (3.0-13.0); PLATELET COUNT (AUTO) 334 K/uL (130-400); RED BLOOD CELL COUNT(AUTO) 3.67 MIL/uL (4.00-5.50); RED CELL DISTRIBUTION WIDTH 15.1 % (11.0-15.5); WHITE BLOOD COUNT (AUTO) 10.7 K/uL (4.8-10.8)
[2017-09-28] MEDS: BUDESONIDE 0.25 MG/2 ML INH IH SCH ×2 (06:57→18:09)
[2017-09-28] MEDS: IPRATROPIUM/ALBUTEROL SULFATE 3 ML SOLUTION IH SCH ×4 (06:57→23:33)
[2017-09-28 08:00] VITALS: BP 155/87
[2017-09-28] MEDS: LORAZEPAM 1 MG TABLET PO SCH ×2 (09:58→21:03)
[2017-09-28] MEDS: SERTRALINE HCL 50 MG TABLET PO SCH (09:58)
[2017-09-28] MEDS: AMLODIPINE BESYLATE 5 MG TAB PO SCH (09:58)
[2017-09-28] MEDS: ENOXAPARIN SODIUM 40 MG/0.4 ML SYRINGE SQ SCH (09:59)
[2017-09-28 12:00] VITALS: BP 139/72
[2017-09-28] MEDS ORDERED: AMLO5TAB4 PO (12:50)
[2017-09-28 16:00] VITALS: BP 144/78
[2017-09-28] MEDS: KETOROLAC TROMETHAMINE 15MG/ML IV PRN (16:29)
[2017-09-28 19:15] VITALS: BP 137/72
[2017-09-29 00:18] VITALS: BP 144/83
[2017-09-29 04:12] VITALS: BP 142/75
[2017-09-29] MEDS: NS-20 MEQ KCL 1000ML 1,000 ML IV SCH (05:50)
[2017-09-29] MEDS: KETOROLAC TROMETHAMINE 15MG/ML IV PRN (05:58)
[2017-09-29] MEDS: BUDESONIDE 0.25 MG/2 ML INH IH SCH (06:59)
[2017-09-29] MEDS: IPRATROPIUM/ALBUTEROL SULFATE 3 ML SOLUTION IH SCH ×2 (06:59→11:07)
[2017-09-29 08:16] VITALS: BP 145/79
[2017-09-29] MEDS: AMLODIPINE BESYLATE 5 MG TAB PO SCH (10:43)
[2017-09-29] MEDS: SERTRALINE HCL 50 MG TABLET PO SCH (10:44)
[2017-09-29] MEDS: LORAZEPAM 1 MG TABLET PO SCH (10:44)
[2017-09-29] MEDS: ENOXAPARIN SODIUM 40 MG/0.4 ML SYRINGE SQ SCH (10:44)
[2017-09-29 11:30] VITALS: BP 146/72
== END 2017-09-29 13:35 | disposition home or self-care (01) | DRG 371 ==
LOC: EDH 11:57 → EDHIP 13:25 → OBSVTOIN 13:25 → 3DH 15:36
PROVIDERS: ADMIT Family Medicine; ATTEND Family Medicine
PROC: 05HN33Z Insertion of Infusion Device into Left Internal Jugular Vein, Percutaneous Approach (ICD-10-PCS; principal; 2017-09-26)
PROC: B544ZZA Ultrasonography of Left Jugular Veins, Guidance (ICD-10-PCS; 2017-09-26)
PROC: 0W993ZZ Drainage of Right Pleural Cavity, Percutaneous Approach (ICD-10-PCS; 2017-09-26)
DX: A04.72 Enterocolitis due to Clostridium difficile, not specified as recurrent (principal); J18.9 Pneumonia, unspecified organism; J90 Pleural effusion, not elsewhere classified; C78.00 Secondary malignant neoplasm of unspecified lung; C78.7 Secondary malignant neoplasm of liver and intrahepatic bile duct; J98.11 Atelectasis; C50.911 Malignant neoplasm of unspecified site of right female breast; E87.6 Hypokalemia; F41.9 Anxiety disorder, unspecified; I10 Essential (primary) hypertension; K27.9 Peptic ulcer, site unspecified, unspecified as acute or chronic, without hemorrhage or perforation; M19.90 Unspecified osteoarthritis, unspecified site; K76.9 Liver disease, unspecified; Z85.3 Personal history of malignant neoplasm of breast; Z87.11 Personal history of peptic ulcer disease; Z88.5 Allergy status to narcotic agent; Z91.041 Radiographic dye allergy status
CPT/HCPCS: 32555; 36415; 36561; 71045; 71270; 77001; 80048; 80053; 81003; 82550; 82553; 83605; 83874; 83880; 84484; 85025; 85027; 85610; 85730; 87040; 87088; 88108; 88305; 93005; 94640; 94664; 94760; 99156; 99157; A4218; C1769; C1788; J0456; J0696; J1644; J1650; J1885; J1956; J2250; J2543; J3010; J3480; J3490; J7030; Q9967

== ENCOUNTER 2017-10-13 05:24 | Inpatient (IN) | payer OTHER ==
[~2017-10-13] VITALS: Ht 154.9 cm; Wt 59.9 kg
[~2017-10-13 05:24] MED LIST changes: +AMLO5TAB4 PO; -POTA20TA12 PO; +PRO AIR
[2017-10-13] MEDS ORDERED: SODIUM CHLORIDE 0.9% 1000ML 1,000 ML IV ONE (06:09)
[2017-10-13 06:25] LABS: BASOPHILS % (AUTO) 0.1 % (0.0-5.0); HEMATOCRIT 35.4 % (36-48); MEAN CORPUSCULAR HEMOGLOBIN 29.1 pg (27.0-33.0); MEAN CORPUSCULAR HGB CONC 33.5 g/dL (32.0-36.0); MEAN CORPUSCULAR VOLUME 86.8 fL (79-99); MONOCYTES % (AUTO) 8.2 % (3.0-13.0); NEUTROPHILS % (AUTO) 86.7 % (40.0-77.0); NUCLEATED RED BLOOD CELLS 0.1 % (0.0-0.19); PLATELET COUNT (AUTO) 447 K/uL (130-400); RED BLOOD CELL COUNT(AUTO) 4.08 MIL/uL (4.00-5.50); RED CELL DISTRIBUTION WIDTH 14.9 % (11.0-15.5); WHITE BLOOD COUNT (AUTO) 18.8 K/uL (4.8-10.8)
[2017-10-13 06:42] LABS: POTASSIUM 3.4 mmol/L (3.5-5.1)
[2017-10-13 06:49] LABS: ALBUMIN 2.3 g/dL (3.5-5.0); BILIRUBIN,TOTAL 0.4 mg/dL (0.2-1.0)
[2017-10-13 07:10] LABS: APPEARANCE,URINE Cloudy (CLEAR); BILIRUBIN,URINE Small (NEGATIVE); COLOR,URINE Dark Yellow (YELLOW); GLUCOSE, URINE (UA) Negative (NEGATIVE); KETONES,URINE 15 mg/dL (NEGATIVE); LEUKOCYTE ESTERASE ,URINE Negative (NEGATIVE); NITRATE,URINE Negative (NEGATIVE); OCCULT BLOOD,URINE Moderate (NEGATIVE); PROTEIN,URINE POS 1+ (NEGATIVE)
[2017-10-13 07:55] LABS: BACTERIA,URINE Rare /HPF (None Seen); MUCUS,URINE Moderate LPF (None Seen); RBC,URINE 0-1 /HPF (0-1); SQUAMOUS EPITHELIAL CELL,UR Few /HPF (0-2)
[2017-10-13] MEDS ORDERED: METRONIDAZOLE 500MG/100ML BAG 100 ML ONE (08:17)
[2017-10-13] MEDS ORDERED: ZOSYN 3.375GM+NS 50ML 50 ML IV ONE (10:41)
[2017-10-13] MEDS ORDERED: D5W-1/2 NS/20MEQ KCL 1,000 ML IV SCH (11:00)
[2017-10-13] MEDS ORDERED: ACET-2123 PO (18:12)
[2017-10-13] MEDS ORDERED: ONDA8TAB12 PO (18:12)
[2017-10-13 18:32] VITALS: BP 134/66
[2017-10-13] MEDS: ZOSYN 3.375GM+NS 50ML 50 ML IV SCH (21:23)
[2017-10-13 23:00] VITALS: BP 130/73
[2017-10-13] MEDS: METRONIDAZOLE 500MG/100ML BAG 100 ML IVPB SCH (23:10)
[2017-10-14] MEDS: D5W-1/2 NS/20MEQ KCL 1,000 ML IV SCH ×3 (02:43→16:57)
[2017-10-14 04:00] VITALS: BP 148/65
[2017-10-14 04:58] LABS: HEMATOCRIT 31.6 % (36-48); MEAN CORPUSCULAR HEMOGLOBIN 29.1 pg (27.0-33.0); MEAN CORPUSCULAR HGB CONC 33.4 g/dL (32.0-36.0); MEAN CORPUSCULAR VOLUME 87.2 fL (79-99); NUCLEATED RED BLOOD CELLS 0.1 % (0.0-0.19); PLATELET COUNT (AUTO) 356 K/uL (130-400); RED BLOOD CELL COUNT(AUTO) 3.63 MIL/uL (4.00-5.50); RED CELL DISTRIBUTION WIDTH 14.8 % (11.0-15.5); WHITE BLOOD COUNT (AUTO) 21.2 K/uL (4.8-10.8)
[2017-10-14] MEDS: ZOSYN 3.375GM+NS 50ML 50 ML IV SCH ×3 (05:00→21:08)
[2017-10-14 05:22] LABS: ALBUMIN 1.8 g/dL (3.5-5.0); BILIRUBIN,TOTAL 0.2 mg/dL (0.2-1.0); CREATININE 0.8 mg/dL (0.5-1.5); POTASSIUM 3.3 mmol/L (3.5-5.1); TOTAL PROTEIN, SERUM 5.8 g/dL (6.0-8.3)
[2017-10-14] MEDS: METRONIDAZOLE 500MG/100ML BAG 100 ML IVPB SCH ×3 (05:23→21:09)
[2017-10-14 08:00] VITALS: BP 126/65
[2017-10-14] MEDS: PANTOPRAZOLE SODIUM 40 MG TABLET.DR PO SCH (09:00)
[2017-10-14 11:00] VITALS: BP 131/68
[2017-10-14] MEDS ORDERED: MORPHINE SULFATE 4 MG/1ML SYG IVP PRN (11:15)
[2017-10-14 16:00] VITALS: BP 119/61
[2017-10-14 19:00] VITALS: BP 127/66
[2017-10-14 23:00] VITALS: BP 126/65
[2017-10-15 03:00] VITALS: BP 149/74
[2017-10-15] MEDS: METRONIDAZOLE 500MG/100ML BAG 100 ML IVPB SCH ×3 (04:52→20:51)
[2017-10-15] MEDS: ZOSYN 3.375GM+NS 50ML 50 ML IV SCH ×3 (04:52→20:51)
[2017-10-15 05:04] LABS: BASOPHILS % (AUTO) 0.1 % (0.0-5.0); EOSINOPHILS % (AUTO) 0.4 % (0.0-8.0); HEMATOCRIT 32.4 % (36-48); LYMPHOCYTES % (AUTO) 5.3 % (21.0-51.0); MEAN CORPUSCULAR HEMOGLOBIN 29.3 pg (27.0-33.0); MEAN CORPUSCULAR HGB CONC 33.5 g/dL (32.0-36.0); MEAN CORPUSCULAR VOLUME 87.4 fL (79-99); NEUTROPHILS % (AUTO) 89.2 % (40.0-77.0); PLATELET COUNT (AUTO) 335 K/uL (130-400); RED BLOOD CELL COUNT(AUTO) 3.71 MIL/uL (4.00-5.50); WHITE BLOOD COUNT (AUTO) 26.4 K/uL (4.8-10.8)
[2017-10-15 05:13] LABS: CREATININE 0.8 mg/dL (0.5-1.5); POTASSIUM 3.8 mmol/L (3.5-5.1)
[2017-10-15 08:00] VITALS: BP 137/74
[2017-10-15] MEDS: PANTOPRAZOLE SODIUM 40 MG TABLET.DR PO SCH (09:00)
[2017-10-15] MEDS: D5W-1/2 NS/20MEQ KCL 1,000 ML IV SCH ×2 (09:36→23:25)
[2017-10-15] MEDS: ENOXAPARIN SODIUM 40 MG/0.4 ML SYRINGE SQ SCH (09:40)
[2017-10-15 12:00] VITALS: BP 142/70
[2017-10-15] MEDS ORDERED: VANCOMYCIN 1GM+NS 250ML 250 ML IV SCH ×2 (13:45→21:00)
[2017-10-15 16:00] VITALS: BP 139/78
[2017-10-15] MEDS ORDERED: VANCOMYCIN PROTOCOL PER PHARMACY IV SCH (18:45)
[2017-10-15 19:00] VITALS: BP 136/69
[2017-10-15 23:00] VITALS: BP 134/68
[2017-10-16] MEDS: D5W-1/2 NS/20MEQ KCL 1,000 ML IV SCH ×2 (01:49→18:14)
[2017-10-16 03:00] VITALS: BP 156/80
[2017-10-16 04:00] VITALS: BP 134/96
[2017-10-16] MEDS ORDERED: VANCOMYCIN 1GM+NS 250ML 250 ML IV SCH (04:00)
[2017-10-16] MEDS: ZOSYN 3.375GM+NS 50ML 50 ML IV SCH (04:43)
[2017-10-16] MEDS: METRONIDAZOLE 500MG/100ML BAG 100 ML IVPB SCH (05:15)
[2017-10-16 05:36] LABS: BASOPHILS % (AUTO) 0.4 % (0.0-5.0); EOSINOPHILS % (AUTO) 0.5 % (0.0-8.0); HEMATOCRIT 34.4 % (36-48); LYMPHOCYTES % (AUTO) 6.2 % (21.0-51.0); MEAN CORPUSCULAR HEMOGLOBIN 28.9 pg (27.0-33.0); MEAN CORPUSCULAR VOLUME 87.5 fL (79-99); MONOCYTES % (AUTO) 5.9 % (3.0-13.0); NUCLEATED RED BLOOD CELLS 0.1 % (0.0-0.19); PLATELET COUNT (AUTO) 334 K/uL (130-400); RED BLOOD CELL COUNT(AUTO) 3.94 MIL/uL (4.00-5.50); RED CELL DISTRIBUTION WIDTH 15.2 % (11.0-15.5); WHITE BLOOD COUNT (AUTO) 21.3 K/uL (4.8-10.8)
[2017-10-16 05:49] LABS: CREATININE 0.9 mg/dL (0.5-1.5); MAGNESIUM 1.7 mg/dL (1.80-2.40); POTASSIUM 3.1 mmol/L (3.5-5.1)
[2017-10-16 08:00] VITALS: BP 135/72
[2017-10-16] MEDS ORDERED: POTASSIUM CHLORIDE 20 MEQ ERTAB PO PRN ×2 (08:45)
[2017-10-16] MEDS ORDERED: MAGNESIUM 2GM PREMIX 50ML 50 ML IV SCH (08:45)
[2017-10-16] MEDS ORDERED: POTASSIUM CHLORIDE 20MEQ/100ML 100 ML IV PRN (08:45)
[2017-10-16] MEDS ORDERED: POTASSIUM CHLORIDE 10% ELIXIR 20 MEQ/15 ML UDCUP PO PRN ×2 (08:45)
[2017-10-16] MEDS ORDERED: LIDOCAINE HCL-MPF 1% 2ML VIAL IVP PRN (08:45)
[2017-10-16] MEDS ORDERED: LORAZEPAM 0.5 MG TABLET PO PRN (09:00)
[2017-10-16] MEDS: METOPROLOL TARTRATE 25 MG TAB PO SCH ×2 (10:12→19:55)
[2017-10-16] MEDS: PANTOPRAZOLE SODIUM 40 MG TABLET.DR PO SCH (10:13)
[2017-10-16] MEDS: ENOXAPARIN SODIUM 40 MG/0.4 ML SYRINGE SQ SCH (10:13)
[2017-10-16 11:00] VITALS: BP 163/82
[2017-10-16] MEDS ORDERED: PHARMACY COMMUNICATION MISC SCH (15:30)
[2017-10-16] MEDS ORDERED: COMPOUND PO MISCELLANEOUS 1 EACH MISC MISC PRN (15:45)
[2017-10-16 16:00] VITALS: BP 152/87
[2017-10-16] MEDS: POTASSIUM CHLORIDE 20MEQ/100ML 100 ML IV PRN (18:14)
[2017-10-16] MEDS: LIDOCAINE HCL-MPF 1% 2ML VIAL IVP PRN (18:14)
[2017-10-16] MEDS: VANCOMYCIN 250MG/5ML ORAL SOLUTION 40ML PO SCH ×2 (19:55)
[2017-10-16] MEDS: NYSTATIN 15 GM POWDER TP SCH (19:55)
[2017-10-16 20:00] VITALS: BP 160/82
[2017-10-17] VITALS: BP 156/85
[2017-10-17] MEDS: LIDOCAINE HCL-MPF 1% 2ML VIAL IVP PRN ×2 (00:14→10:50)
[2017-10-17] MEDS: POTASSIUM CHLORIDE 20MEQ/100ML 100 ML IV PRN ×2 (00:14→10:49)
[2017-10-17] MEDS: D5W-1/2 NS/20MEQ KCL 1,000 ML IV SCH ×3 (02:32→17:43)
[2017-10-17] MEDS: VANCOMYCIN 250MG/5ML ORAL SOLUTION 40ML PO SCH ×8 (03:23→21:58)
[2017-10-17 03:29] LABS: BASOPHILS % (AUTO) 0.3 % (0.0-5.0); EOSINOPHILS % (AUTO) 0.6 % (0.0-8.0); HEMATOCRIT 34.9 % (36-48); LYMPHOCYTES % (AUTO) 8.2 % (21.0-51.0); MEAN CORPUSCULAR HEMOGLOBIN 29.7 pg (27.0-33.0); MEAN CORPUSCULAR HGB CONC 34.5 g/dL (32.0-36.0); MEAN CORPUSCULAR VOLUME 86.3 fL (79-99); MONOCYTES % (AUTO) 7.2 % (3.0-13.0); NEUTROPHILS % (AUTO) 83.7 % (40.0-77.0); PLATELET COUNT (AUTO) 322 K/uL (130-400); RED BLOOD CELL COUNT(AUTO) 4.04 MIL/uL (4.00-5.50); WHITE BLOOD COUNT (AUTO) 19.8 K/uL (4.8-10.8)
[2017-10-17 03:47] LABS: MAGNESIUM 2.2 mg/dL (1.80-2.40); POTASSIUM 3.7 mmol/L (3.5-5.1)
[2017-10-17 04:00] VITALS: BP 130/72
[2017-10-17] MEDS ORDERED: ALBUTEROL IH PRN (06:30)
[2017-10-17] MEDS ORDERED: ALBUTEROL SULFATE 0.083% 2.5 MG/3 ML INH IH PRN (06:30)
[2017-10-17 08:00] VITALS: BP 158/84
[2017-10-17] MEDS: [UNRECOGNIZED DRUG - OTHER] PO SCH (09:00)
[2017-10-17 11:00] VITALS: BP 164/85
[2017-10-17] MEDS: NYSTATIN 15 GM POWDER TP SCH ×2 (11:12→21:58)
[2017-10-17] MEDS: METOPROLOL TARTRATE 25 MG TAB PO SCH ×2 (11:13→20:53)
[2017-10-17] MEDS: SERTRALINE HCL 50 MG TABLET PO SCH (11:13)
[2017-10-17] MEDS: ENOXAPARIN SODIUM 40 MG/0.4 ML SYRINGE SQ SCH (11:13)
[2017-10-17] MEDS: PANTOPRAZOLE SODIUM 40 MG TABLET.DR PO SCH (11:13)
[2017-10-17 16:00] VITALS: BP 140/84
[2017-10-17 20:00] VITALS: BP 170/83
[2017-10-17] MEDS: BUDESONIDE 0.5 MG/2 ML INH IH SCH (21:30)
[2017-10-18] VITALS (7 sets, daily range): BP systolic 127–172; BP diastolic 57–89
[2017-10-18] MEDS: VANCOMYCIN 250MG/5ML ORAL SOLUTION 40ML PO SCH ×8 (04:10→22:03)
[2017-10-18] MEDS: D5W-1/2 NS/20MEQ KCL 1,000 ML IV SCH ×2 (04:14→13:43)
[2017-10-18 05:41] LABS: BASOPHILS % (AUTO) 0.5 % (0.0-5.0); EOSINOPHILS % (AUTO) 0.8 % (0.0-8.0); HEMATOCRIT 33.7 % (36-48); LYMPHOCYTES % (AUTO) 11.7 % (21.0-51.0); MEAN CORPUSCULAR HEMOGLOBIN 29.1 pg (27.0-33.0); MEAN CORPUSCULAR HGB CONC 33.4 g/dL (32.0-36.0); MEAN CORPUSCULAR VOLUME 87.1 fL (79-99); MONOCYTES % (AUTO) 8.6 % (3.0-13.0); NEUTROPHILS % (AUTO) 78.4 % (40.0-77.0); PLATELET COUNT (AUTO) 325 K/uL (130-400); RED BLOOD CELL COUNT(AUTO) 3.87 MIL/uL (4.00-5.50); RED CELL DISTRIBUTION WIDTH 15.3 % (11.0-15.5); WHITE BLOOD COUNT (AUTO) 15.9 K/uL (4.8-10.8)
[2017-10-18 05:49] LABS: CREATININE 0.9 mg/dL (0.5-1.5); POTASSIUM 3.3 mmol/L (3.5-5.1)
[2017-10-18] MEDS: LIDOCAINE HCL-MPF 1% 2ML VIAL IVP PRN ×2 (06:29→13:26)
[2017-10-18] MEDS: POTASSIUM CHLORIDE 20MEQ/100ML 100 ML IV PRN ×2 (06:29→13:27)
[2017-10-18] MEDS: BUDESONIDE 0.5 MG/2 ML INH IH SCH ×2 (06:36→19:12)
[2017-10-18] MEDS: [UNRECOGNIZED DRUG - OTHER] PO SCH (09:00)
[2017-10-18] MEDS: ENOXAPARIN SODIUM 40 MG/0.4 ML SYRINGE SQ SCH (09:57)
[2017-10-18] MEDS: LISINOPRIL 10 MG TABLET PO SCH (09:58)
[2017-10-18] MEDS: METOPROLOL TARTRATE 25 MG TAB PO SCH ×2 (09:58→22:03)
[2017-10-18] MEDS: PANTOPRAZOLE SODIUM 40 MG TABLET.DR PO SCH (09:58)
[2017-10-18] MEDS: SERTRALINE HCL 50 MG TABLET PO SCH (09:58)
[2017-10-18] MEDS: NYSTATIN 15 GM POWDER TP SCH ×2 (10:02→23:30)
[2017-10-18] MEDS ORDERED: LOPERAMIDE HCL 2 MG CAP PO SCH (16:15)
[2017-10-19 00:11] VITALS: BP 161/79
[2017-10-19 04:29] VITALS: BP 146/80
[2017-10-19] MEDS: VANCOMYCIN 250MG/5ML ORAL SOLUTION 40ML PO SCH ×8 (04:49→21:03)
[2017-10-19 05:17] LABS: BASOPHILS % (AUTO) 0.5 % (0.0-5.0); EOSINOPHILS % (AUTO) 1.1 % (0.0-8.0); HEMATOCRIT 34.1 % (36-48); LYMPHOCYTES % (AUTO) 13.3 % (21.0-51.0); MEAN CORPUSCULAR HEMOGLOBIN 29.6 pg (27.0-33.0); MEAN CORPUSCULAR HGB CONC 33.8 g/dL (32.0-36.0); MEAN CORPUSCULAR VOLUME 87.5 fL (79-99); MONOCYTES % (AUTO) 9.4 % (3.0-13.0); NEUTROPHILS % (AUTO) 75.7 % (40.0-77.0); PLATELET COUNT (AUTO) 303 K/uL (130-400); RED CELL DISTRIBUTION WIDTH 15.6 % (11.0-15.5); WHITE BLOOD COUNT (AUTO) 14.7 K/uL (4.8-10.8)
[2017-10-19 05:26] LABS: CREATININE 0.9 mg/dL (0.5-1.5); POTASSIUM 3.7 mmol/L (3.5-5.1)
[2017-10-19] MEDS: BUDESONIDE 0.5 MG/2 ML INH IH SCH ×2 (06:33→19:00)
[2017-10-19 08:49] VITALS: BP 168/85
[2017-10-19] MEDS: [UNRECOGNIZED DRUG - OTHER] PO SCH (09:00)
[2017-10-19] MEDS: METOPROLOL TARTRATE 25 MG TAB PO SCH ×2 (09:15→21:03)
[2017-10-19] MEDS: SERTRALINE HCL 50 MG TABLET PO SCH (09:15)
[2017-10-19] MEDS: ENOXAPARIN SODIUM 40 MG/0.4 ML SYRINGE SQ SCH (09:15)
[2017-10-19] MEDS: PANTOPRAZOLE SODIUM 40 MG TABLET.DR PO SCH (09:15)
[2017-10-19] MEDS: LISINOPRIL 10 MG TABLET PO SCH (09:15)
[2017-10-19] MEDS: NYSTATIN 15 GM POWDER TP SCH ×2 (09:21→21:07)
[2017-10-19 11:02] VITALS: BP 148/78
[2017-10-19 17:47] VITALS: BP 141/70
[2017-10-19 20:56] VITALS: BP 155/79
[2017-10-20 00:22] VITALS: BP 149/79
[2017-10-20 04:29] LABS: BASOPHILS % (AUTO) 0.6 % (0.0-5.0); HEMATOCRIT 33.6 % (36-48); LYMPHOCYTES % (AUTO) 14.1 % (21.0-51.0); MEAN CORPUSCULAR HEMOGLOBIN 28.8 pg (27.0-33.0); MEAN CORPUSCULAR HGB CONC 32.9 g/dL (32.0-36.0); MEAN CORPUSCULAR VOLUME 87.6 fL (79-99); MONOCYTES % (AUTO) 9.4 % (3.0-13.0); NEUTROPHILS % (AUTO) 74.9 % (40.0-77.0); PLATELET COUNT (AUTO) 301 K/uL (130-400); RED BLOOD CELL COUNT(AUTO) 3.84 MIL/uL (4.00-5.50); RED CELL DISTRIBUTION WIDTH 15.2 % (11.0-15.5); WHITE BLOOD COUNT (AUTO) 14.1 K/uL (4.8-10.8)
[2017-10-20 04:34] LABS: POTASSIUM 3.4 mmol/L (3.5-5.1)
[2017-10-20 04:38] VITALS: BP 155/77
[2017-10-20] MEDS: VANCOMYCIN 250MG/5ML ORAL SOLUTION 40ML PO SCH ×2 (06:20)
[2017-10-20] MEDS: BUDESONIDE 0.5 MG/2 ML INH IH SCH (06:40)
[2017-10-20 08:00] VITALS: BP 135/76
[2017-10-20] MEDS: [UNRECOGNIZED DRUG - OTHER] PO SCH (09:00)
[2017-10-20] MEDS: SERTRALINE HCL 50 MG TABLET PO SCH (09:53)
[2017-10-20] MEDS: LISINOPRIL 10 MG TABLET PO SCH (09:54)
[2017-10-20] MEDS: METOPROLOL TARTRATE 25 MG TAB PO SCH (09:54)
[2017-10-20] MEDS: NYSTATIN 15 GM POWDER TP SCH (09:54)
[2017-10-20] MEDS: PANTOPRAZOLE SODIUM 40 MG TABLET.DR PO SCH (09:54)
[2017-10-20] MEDS: ENOXAPARIN SODIUM 40 MG/0.4 ML SYRINGE SQ SCH (09:55)
[2017-10-20] MEDS ORDERED: IPRATROPIUM/ALBUTEROL SULFATE 3 ML SOLUTION IH PRN (11:45)
[2017-10-20 12:00] VITALS: BP 139/68
[2017-10-20 16:00] VITALS: BP 147/72
== END 2017-10-20 18:30 | disposition hospice, home (50) | DRG 372 ==
LOC: EDH 05:24 → EDHIP 08:05 → OBSVTOIN 08:05 → 3BH 17:43
PROVIDERS: ADMIT Family Medicine; ATTEND Family Medicine
DX: A04.71 Enterocolitis due to Clostridium difficile, recurrent (principal); C78.01 Secondary malignant neoplasm of right lung; C78.02 Secondary malignant neoplasm of left lung; C50.911 Malignant neoplasm of unspecified site of right female breast; I10 Essential (primary) hypertension; F41.9 Anxiety disorder, unspecified; J30.9 Allergic rhinitis, unspecified; M19.90 Unspecified osteoarthritis, unspecified site; Z85.3 Personal history of malignant neoplasm of breast; E87.6 Hypokalemia; Z92.21 Personal history of antineoplastic chemotherapy; E83.42 Hypomagnesemia; Z90.710 Acquired absence of both cervix and uterus; Z90.49 Acquired absence of other specified parts of digestive tract; Z88.8 Allergy status to other drugs, medicaments and biological substances; Z88.6 Allergy status to analgesic agent; Z91.041 Radiographic dye allergy status
CPT/HCPCS: 36415; 71045; 74176; 80048; 80053; 80202; 81001; 83690; 83735; 84132; 85025; 85027; 87046; 87324; 92610; 94640; 94664; 97039; C9113; J1650; J2270; J2543; J3370; J3475; J3480; J3490; J7030